=== PATIENT | male | born 1990 | race American Indian/Alaskan Native ===

== ENCOUNTER 2017-04-25 09:50 | Emergency (ER) | payer OTHER ==
[2017-04-25] MEDS ORDERED: Alum Hydrox/Mag Hydrox/Simeth 15 ML, Lidocaine 2% 15 ML PO ONE ×2 (10:08)
--- NOTE | 2017-04-25 10:18 | EDM.PDOC ---
ED HPI GENERAL MEDICAL PROBLEM - General Chief Complaint: Gastrointestinal Problem Stated Complaint: [facility] Time Seen by Provider: 04/25/17 10:05 Source of Information: Reports: Patient, Other (staff at [facility]) History Limitations: Reports: Other (incomplete old records) - History of Present Illness INITIAL COMMENTS - FREE TEXT/NARRATIVE: 26 yo male admitted to [facility] last night from the [facility] due to a BA of .37. Says he drinks most days until he passes out. Has been drinking for now 7 days straight. This morning vomited blood and stools were reportedly black per patient. He denies a hx of PUD. Currently has both RUQ and epigastric tenderness. EMS transported and started an IV and administered an anti-emetic with relief of his nausea. Onset: Today Onset Date: 04/25/17 Onset Time: 07:00 Duration: Hour(s):, Constant Location: Reports: Abdomen Quality: Reports: Ache Severity: Moderate Improves with: Reports: None Worsens with: Reports: None Context: Reports: Other (Heavy alcohol use.) Associated Symptoms: Reports: Nausea/Vomiting, Other (black stools) Treatments [employer]: Reports: Other (see below) (IV fluids, anti-emetics) Right Upper Abdomen Pain Score (Numeric/FACES): 6 - Related Data Allergies Allergy/AdvReac Type Severity Reaction Status Date / Time cefaclor [From Ceclor] Allergy Hives Verified 04/25/17 10:22 Penicillins Allergy Hives Verified 04/25/17 10:22 Home Meds: Home Meds Omeprazole 40 mg PO DAILY #30 cap.sr 04/25/17 [Rx] Sertraline [Zoloft] 50 mg PO DAILY 04/25/17 [History] busPIRone [Buspar] 15 mg PO BID 04/25/17 [History] ED ROS GENERAL - Review of Systems Review Of Systems: See Below Constitutional: Reports: No Symptoms HEENT: Reports: No Symptoms Respiratory: Reports: No Symptoms Cardiovascular: Reports: No Symptoms Endocrine: Reports: No Symptoms GI/Abdominal: Reports: Abdominal Pain, Black Stool, Hematemesis, Melena, Nausea , Vomiting. Denies: Bloody Stool, Constipation, Diarrhea, Flatus, Hematochezia : Reports: No Symptoms Musculoskeletal: Reports: No Symptoms Skin: Reports: No Symptoms Neurological: Reports: No Symptoms Psychiatric: Reports: No Symptoms ED EXAM, GI/ABD - Physical Exam Exam: See Below Exam Limited By: No Limitations General Appearance: Alert, WD/WN, No Apparent Distress Eyes: Bilateral: Normal Appearance Ears: Normal External Exam, Normal Canal, Hearing Grossly Normal, Normal TMs Nose: Normal Inspection, Normal Mucosa, No Blood Throat/Mouth: Normal Inspection, Normal Lips, Normal Oropharynx, Normal Voice, No Airway Compromise Head: Atraumatic, Normocephalic Neck: Normal Inspection, Supple, Non-Tender Respiratory/Chest: No Respiratory Distress, Lungs Clear, Normal Breath Sounds, No Accessory Muscle Use Cardiovascular: Regular Rate, Rhythm, No Edema GI/Abdominal Exam: Normal Bowel Sounds, Soft, No Distention, Tender (RUQ and epigastrium). No: Distended, Guarding, Rigid, Rebound Back Exam: Normal Inspection. No: CVA Tenderness (R), CVA Tenderness (L) Extremities: Normal Inspection, Normal Range of Motion, Non-Tender, No Pedal Edema Neurological: Alert, Oriented, CN II-XII Intact, Normal Cognition, No Motor/ Sensory Deficits Psychiatric: Normal Affect, Normal Mood Skin Exam: Warm, Dry, Intact, Normal Color, No Rash Lymphatic: No Adenopathy Course - Vital Signs Last Recorded V/S: Last Vital Signs Temp 37.1 C 04/25/17 10:06 Pulse 85 04/25/17 10:06 Resp 16 04/25/17 10:06 BP 121/71 04/25/17 10:06 Pulse Ox 97 04/25/17 10:06 Orthostatic Blood Pressure [ 121/94 Standing] Orthostatic Blood Pressure [ 150/74 Sitting] Orthostatic Blood Pressure [ 131/81 Supine] - Orders/Labs/Meds Orders: Active Orders 24 hr Category Date Time Status Hemoccult [Fecal Occult Blood Collection] [RC] Care 04/25/17 10:12 Active ASDIRECTED Orthostatic Vital Signs [RC] ASDIRECTED Care 04/25/17 10:08 Active Pantoprazole [ProTONIX] Med 04/25/17 10:45 Active 40 mg PO DAILY Medication Orders Pantoprazole Sodium (Protonix) 40 mg PO DAILY [facility] Last Admin: 04/25/17 10:51 Dose: 40 mg Meds: Medications Generic Name Dose Route Start Last Admin Trade Name Freq PRN Reason Stop Dose Admin Pantoprazole Sodium 40 mg 04/25/17 10:45 04/25/17 10:51 Protonix PO 40 mg DAILY CIARA Administration Discontinued Medications Generic Name Dose Route Start Last Admin Trade Name Aranza PRN Reason Stop Dose Admin Al Hydroxide/Mg Hydroxide 15 0 ml 04/25/17 10:08 04/25/17 10:19 ml/ Lidocaine HCl 15 ml PO 04/25/17 10:09 30 ml ONETIME ONE Administration Departure - Departure Time of Disposition: 11:45 Disposition: Home, Self-Care 01 Condition: Fair Clinical Impression: Alcohol abuse, Tobacco use disorder Alcoholic gastritis Qualifiers: Chronicity: acute Gastritis bleeding: with bleeding Qualified Code(s): K29.21 - Alcoholic gastritis with bleeding Alcoholic hepatitis Qualifiers: Ascites presence: without ascites Qualified Code(s): K70.10 - Alcoholic hepatitis without ascites - Discharge Information Prescriptions: Omeprazole 40 mg PO DAILY #30 cap.sr Referrals: PCP,None [Primary Care Provider] - Forms: ED Department Discharge Additional Instructions: No smoking. No alcohol. Take omeprazole as directed until gone. See your doctor for recheck before the month is up. Recheck if worse. - My Orders Last 24 Hours: My Active Orders 04/25/17 10:08 Orthostatic Vital Signs [RC] ASDIRECTED 04/25/17 10:12 Hemoccult [Fecal Occult Blood Collection] [RC] ASDIRECTED 04/25/17 10:45 Pantoprazole [ProTONIX] 40 mg PO DAILY - Assessment/Plan Last 24 Hours: My Active Orders 04/25/17 10:08 Orthostatic Vital Signs [RC] ASDIRECTED 04/25/17 10:12 Hemoccult [Fecal Occult Blood Collection] [RC] ASDIRECTED 04/25/17 10:45 Pantoprazole [ProTONIX] 40 mg PO DAILY
[2017-04-25] MEDS ORDERED: Pantoprazole 40 MG Tab.CR PO SCH (10:45)
== END 2017-04-25 12:55 | disposition home or self-care (01) ==
LOC: JP.ED 09:50
DX: K29.21 Alcoholic gastritis with bleeding (principal); K70.10 Alcoholic hepatitis without ascites; F10.10 Alcohol abuse, uncomplicated; Z72.0 Tobacco use; Z88.0 Allergy status to penicillin; Z88.1 Allergy status to other antibiotic agents; Z79.899 Other long term (current) drug therapy
CPT/HCPCS: 82272; 99284; A9270

== ENCOUNTER 2017-06-08 09:22 | Emergency (ER) | payer OTHER ==
[2017-06-08] MEDS ORDERED: Clindamycin HCl 150 MG Cap PO ONE (09:53)
--- NOTE | 2017-06-08 09:59 | EDM.PDOC ---
ED HPI GENERAL MEDICAL PROBLEM - General Chief Complaint: ENT Problem Stated Complaint: TOOTH PAIN RIGHT SIDE,ALCOHOL WITHDRAWAL Time Seen by Provider: 06/08/17 09:40 Source of Information: Reports: Patient History Limitations: Reports: No Limitations - History of Present Illness INITIAL COMMENTS - FREE TEXT/NARRATIVE: 26-year-old male with right-sided mandibular dental pain, who has been drinking a lot of alcohol over the past 3 days. He has been to detox many times and tends to sign himself out. Last time he was there was a few weeks ago when they sent him in because he said he was throwing up blood and having dark stools but his workup was negative including Hemoccult. He said he doesn't have his antibiotics because he's been in [place] for 3 days, however he was in the emergency room up in [place] yesterday so his story keeps changing. He is refusing to go back to detox, wants something for his dental pain. He also wants something to "calm him down". He is afebrile, his blood pressure and pulse were normal. Associated Symptoms: Denies: Fever/Chills, Nausea/Vomiting, Shortness of Breath Right Tooth/Teeth Pain Score (Numeric/FACES): 10 - Related Data Allergies Allergy/AdvReac Type Severity Reaction Status Date / Time cefaclor [From Ceclor] Allergy Hives Verified 04/25/17 10:22 Penicillins Allergy Hives Verified 04/25/17 10:22 Home Meds: Home Meds Omeprazole 40 mg PO DAILY #30 cap.sr 04/25/17 [Rx] Sertraline [Zoloft] 50 mg PO DAILY 04/25/17 [History] busPIRone [Buspar] 15 mg PO BID 04/25/17 [History] Past Medical History Respiratory History: Reports: Asthma Musculoskeletal History: Reports: Fracture Neurological History: Reports: Concussion Psychiatric History: Reports: Addiction, Anxiety, Depression Dermatologic History: Reports: Eczema - Infectious Disease History Infectious Disease History: Reports: MRSA - Past Surgical History HEENT Surgical History: Reports: Tonsillectomy Social & Family History - Tobacco Use Smoking Status *Q: Current Every Day Smoker Years of Tobacco use: 10 Packs/Tins Daily: 0.5 - Caffeine Use Caffeine Use: Reports: Coffee, Energy Drinks, Soda, Tea - Alcohol Use Days Per Week of Alcohol Use: 3 Number of Drinks Per Day: 6 Total Drinks Per Week: 18 - Recreational Drug Use Recreational Drug Use: Yes Drug Use in Last 12 Months: Yes Recreational Drug Type: Reports: Marijuana/Hashish Recreational Drug Use Frequency: Weekly ED ROS ENT - Review of Systems Review Of Systems: See Below Constitutional: Denies: Fever HEENT: Reports: Dental Pain Respiratory: Denies: Shortness of Breath Cardiovascular: Denies: Chest Pain GI/Abdominal: Denies: Abdominal Pain, Nausea, Vomiting : Reports: No Symptoms Psychiatric: Reports: Anxiety ED EXAM, ENT - Physical Exam Exam: See Below Exam Limited By: No Limitations General Appearance: Alert, Anxious Eye Exam: Right Eye: Other (Some mild bilateral sclerae erythema, no jaundice) Mouth/Throat: Other (He does have percussion tenderness to the second molar of the right mandible, a very small amount of redness around the base of the tooth. No jaw swelling.) Respiratory/Chest: No Respiratory Distress Neurological: Alert, Oriented Psychiatric: Anxious Course - Vital Signs Last Recorded V/S: Last Vital Signs Temp 97.1 F 06/08/17 09:36 Pulse 90 06/08/17 09:36 Resp 18 06/08/17 09:36 BP 130/88 06/08/17 09:36 Pulse Ox 99 06/08/17 09:36 - Orders/Labs/Meds Meds: Medications Discontinued Medications Generic Name Dose Route Start Last Admin Trade Name Aranza PRN Reason Stop Dose Admin Clindamycin HCl 300 mg 06/08/17 09:53 06/08/17 09:59 Cleocin PO 06/08/17 09:54 300 mg ONETIME ONE Administration - Re-Assessments/Exams Free Text/Narrative Re-Assessment/Exam: 06/08/17 09:58 Told the patient I can't treat his withdrawal on an outpatient. He already has antibiotics for his dental infection but isn't bothering to take them. He was given 300 mg of oral clindamycin and encouraged to continue his regular antibiotics and call the dentist office today for an appointment in the next few days. I strongly encouraged him to consider detox but he refused. Departure - Departure Time of Disposition: 10:13 Disposition: Home, Self-Care 01 Condition: Fair Clinical Impression: Alcohol abuse, Dental abscess - Discharge Information Instructions: Alcohol Use Disorder Referrals: PCP,None [Primary Care Provider] - Forms: ED Department Discharge Care Plan Goals: You need to get your medications and take them as directed, call the dentist to get an appointment as soon as possible. Consider detox if unable to control your drinking over the next several days.
== END 2017-06-08 10:10 | disposition home or self-care (01) ==
LOC: JP.ED 09:22
DX: F10.239 Alcohol dependence with withdrawal, unspecified (principal); K04.7 Periapical abscess without sinus; J45.909 Unspecified asthma, uncomplicated; F17.210 Nicotine dependence, cigarettes, uncomplicated; F41.9 Anxiety disorder, unspecified; F32.9 Major depressive disorder, single episode, unspecified; Z88.0 Allergy status to penicillin; Z88.8 Allergy status to other drugs, medicaments and biological substances; Z79.899 Other long term (current) drug therapy; Z86.14 Personal history of Methicillin resistant Staphylococcus aureus infection
CPT/HCPCS: 99283; A9270

== ENCOUNTER 2017-08-19 21:42 | Emergency (ER) | payer MEDICAID, OTHER ==
--- NOTE | 2017-08-19 22:39 | EDM.PDOC ---
ED HPI GENERAL MEDICAL PROBLEM - General Chief Complaint: Abdominal Pain Stated Complaint: BLOOD IN STOOL Time Seen by Provider: 08/19/17 22:05 Source of Information: Reports: Patient History Limitations: Reports: No Limitations - History of Present Illness INITIAL COMMENTS - FREE TEXT/NARRATIVE: 26-year-old male, day 3 of detox at [employer] [facility] and was scheduled to be discharged today but is going home tomorrow because he didn't have a ride. Tonight he developed some rectal bleeding 2. He has been seen for rectal bleeding and hematemesis in the past which tests turned out to be negative, he also had a workup in [place] recently where he was diagnosed with GERD. Intermittent mild abdominal discomfort and heartburn. No fevers or chills, denies hematemesis. Severity: Mild Associated Symptoms: Denies: Fever/Chills, Headaches, Loss of Appetite, Nausea/ Vomiting Abdomen Pain Score (Numeric/FACES): 6 - Related Data Allergies Allergy/AdvReac Type Severity Reaction Status Date / Time cefaclor [From Ceclor] Allergy Hives Verified 08/19/17 22:05 Penicillins Allergy Hives Verified 08/19/17 22:05 sulfamethoxazole Allergy Rash Verified 08/19/17 22:05 [From Bactrim] trimethoprim [From Bactrim] Allergy Rash Verified 08/19/17 22:05 Home Meds: Home Meds Omeprazole 40 mg PO DAILY #30 cap.sr 04/25/17 [Rx] Sertraline [Zoloft] 50 mg PO DAILY 04/25/17 [History] busPIRone [Buspar] 15 mg PO BID 04/25/17 [History] Past Medical History Respiratory History: Reports: Asthma Gastrointestinal History: Reports: GERD Musculoskeletal History: Reports: Fracture Neurological History: Reports: Concussion Psychiatric History: Reports: Addiction, Anxiety, Depression Dermatologic History: Reports: Eczema - Infectious Disease History Infectious Disease History: Reports: MRSA - Past Surgical History HEENT Surgical History: Reports: Tonsillectomy Social & Family History - Tobacco Use Smoking Status *Q: Light Tobacco Smoker Years of Tobacco use: 10 Packs/Tins Daily: 0.5 - Caffeine Use Caffeine Use: Reports: Coffee, Energy Drinks, Soda, Tea - Alcohol Use Days Per Week of Alcohol Use: 7 Number of Drinks Per Day: 10 Total Drinks Per Week: 70 Date of Last Drink: 08/16/17 Time of Last Drink: 01:00 - Recreational Drug Use Recreational Drug Use: No ED ROS GENERAL - Review of Systems Review Of Systems: See Below Constitutional: Denies: Fever, Chills HEENT: Reports: No Symptoms Respiratory: Denies: Shortness of Breath Cardiovascular: Denies: Chest Pain GI/Abdominal: Reports: Abdominal Pain, Hematochezia, Nausea. Denies: Vomiting : Reports: No Symptoms Skin: Reports: Other (Abrasions on his limbs from recent falls) Neurological: Denies: Headache ED EXAM, GI/ABD - Physical Exam Exam: See Below Exam Limited By: No Limitations General Appearance: Alert, No Apparent Distress Eyes: Bilateral: Normal Appearance Respiratory/Chest: No Respiratory Distress, Lungs Clear GI/Abdominal Exam: Normal Bowel Sounds, Soft, Tender (Reacts with a small amount of diffuse tenderness, no focal tenderness or guarding) Neurological: Alert, Oriented Psychiatric: Normal Affect, Normal Mood Skin Exam: Warm, Dry Course - Vital Signs Last Recorded V/S: Last Vital Signs Temp 98.4 F 08/19/17 22:02 Pulse 103 H 08/19/17 22:02 Resp 16 08/19/17 22:02 BP 138/85 08/19/17 22:02 Pulse Ox 98 08/19/17 22:02 - Orders/Labs/Meds Labs: Laboratory Tests 08/19/17 Range/Units 22:25 WBC 8.5 (4.5-11.0) K/uL RBC 4.68 (4.30-5.90) M/uL Hgb 15.2 H (12.0-15.0) g/dL Hct 43.3 (40.0-54.0) % MCV 93 (80-98) fL MCH 33 H (27-31) pg MCHC 35 (32-36) % Plt Count 253 (150-400) K/uL Neut % (Auto) 69 H (36-66) % Lymph % (Auto) 20 L (24-44) % Sutton % (Auto) 10 H (2-6) % Eos % (Auto) 1 L (2-4) % Baso % (Auto) 0 (0-1) % Meds: Medications Discontinued Medications Generic Name Dose Route Start Last Admin Trade Name Freq PRN Reason Stop Dose Admin Al Hydroxide/Mg Hydroxide 30 ml 08/19/17 22:31 08/19/17 22:44 Mag-Al Plus PO 08/19/17 22:32 30 ml ONETIME ONE Administration - Re-Assessments/Exams Free Text/Narrative Re-Assessment/Exam: 08/19/17 22:34 Hemoglobin baseline will be drawn, patient asked for something for his stomach so was given 30 mL of liquid Maalox. 08/19/17 23:07 Hemoglobin is 15.2. Patient had no further hematochezia while in the emergency room. He will recheck in 48-72 hours if symptoms persist, or recheck sooner if worsening. Departure - Departure Time of Disposition: 23:27 Disposition: Home, Self-Care 01 Condition: Good Clinical Impression: Rectal bleeding - Discharge Information Instructions: Rectal Bleeding Referrals: PCP,None [Primary Care Provider] - Forms: ED Department Discharge Care Plan Goals: Stool softeners may help. Drink lots of water. Recheck in 2-3 days if not improving. Return sooner if worsening or concerns.
[2017-08-19] MEDS: Aluminum Hydroxide/Magnesium Hydroxide/Simethicone Susp 30 ML Cup PO ONE (22:44)
== END 2017-08-19 23:27 | disposition home or self-care (01) ==
LOC: JP.ED 21:42
DX: K62.5 Hemorrhage of anus and rectum (principal); K21.9 Gastro-esophageal reflux disease without esophagitis; F41.9 Anxiety disorder, unspecified; F32.9 Major depressive disorder, single episode, unspecified; J45.909 Unspecified asthma, uncomplicated; F17.210 Nicotine dependence, cigarettes, uncomplicated; Z79.899 Other long term (current) drug therapy; Z88.0 Allergy status to penicillin; Z88.1 Allergy status to other antibiotic agents
CPT/HCPCS: 36415; 85025; 99284; A9270

== ENCOUNTER 2021-02-03 19:19 | Emergency (ER) | payer MEDICAID ==
--- NOTE | 2021-02-03 20:17 | EDM.PDOC ---
ED HPI GENERAL MEDICAL PROBLEM - General Chief Complaint: ENT Problem Stated Complaint: ABCESS TOOTH Time Seen by Provider: 02/03/21 19:55 Source of Information: Reports: Patient, Family History Limitations: Reports: No Limitations - History of Present Illness INITIAL COMMENTS - FREE TEXT/NARRATIVE: 30-year-old male who has been on a detox for the last 48 hours, has developed s welling and pain in the left mandible and decided to leave detox to treat his tooth ache. No fevers or chills but he does have some minimal early swelling on the left mandible and some tenderness over the area. Onset: Gradual Duration: Day(s): (Symptoms for 2 days, this tooth has been a problem off and on for a year) Location: Reports: Other (Left mandible) Associated Symptoms: Reports: Other (Mild facial swelling) Left Jaw Pain Score (Numeric/FACES): 10 - Related Data Allergies Allergy/AdvReac Type Severity Reaction Status Date / Time cefaclor [From Ceclor] Allergy Hives Verified 02/03/21 19:53 Penicillins Allergy Hives Verified 02/03/21 19:53 sulfamethoxazole Allergy Rash Verified 02/03/21 19:53 [From Bactrim] trimethoprim [From Bactrim] Allergy Rash Verified 02/03/21 19:53 Home Meds: Home Meds NK [No Known Home Meds] 02/03/21 [History] Past Medical History HEENT History: Reports: Impaired Vision Respiratory History: Reports: Asthma Gastrointestinal History: Reports: GERD Musculoskeletal History: Reports: Fracture Neurological History: Reports: Concussion Psychiatric History: Reports: Addiction, Anxiety, Depression Dermatologic History: Reports: Eczema - Infectious Disease History Infectious Disease History: Reports: MRSA - Past Surgical History HEENT Surgical History: Reports: Tonsillectomy Social & Family History - Tobacco Use Tobacco Use Status *Q: Current Every Day Tobacco User Years of Tobacco use: 10 Packs/Tins Daily: 0.5 - Caffeine Use Caffeine Use: Reports: Coffee, Soda, Tea - Alcohol Use Date of Last Drink: 02/01/21 - Recreational Drug Use Recreational Drug Use: Yes Recreational Drug Type: Reports: Marijuana/Hashish Other Recreational Drug Type: as teenager ED ROS ENT - Review of Systems Review Of Systems: See Below Constitutional: Reports: Malaise (Feeling uncomfortable as he is still experiencing some detox). Denies: Fever, Chills HEENT: Reports: Dental Pain (Left mandible) Respiratory: Denies: Shortness of Breath, Cough Cardiovascular: Reports: Palpitations GI/Abdominal: Reports: No Symptoms Psychiatric: Reports: Anxiety ED EXAM, ENT - Physical Exam Exam: See Below Exam Limited By: No Limitations General Appearance: Alert, No Apparent Distress (Is 97) Eye Exam: Bilateral Eye: Normal Inspection Mouth/Throat: Other (Widespread advanced dental decay, he does have some mild swelling and gingival erythema around the left mandibular molars. Tender to palpation over the area.) Neck: No: Lymphadenopathy (R), Lymphadenopathy (L) Respiratory/Chest: No Respiratory Distress, Lungs Clear Cardiovascular: Regular Rate, Rhythm, Tachycardia Course - Vital Signs Last Recorded V/S: Last Vital Signs Temp 98.8 F 02/03/21 19:51 Pulse 112 H 02/03/21 19:51 Resp 16 02/03/21 19:51 BP 160/112 H 02/03/21 19:51 Pulse Ox 95 02/03/21 19:51 - Re-Assessments/Exams Free Text/Narrative Re-Assessment/Exam: 02/03/21 20:16 Patient was placed on clindamycin 300 mg 3 times a day for 10 days. Encouraged to use ibuprofen or naproxen on a regular basis for pain, also given some Benadryl to use for anxiety over the next couple of days. I strongly encouraged she consider going back to detox to finish his treatment but he is not going to do that. Departure - Departure Time of Disposition: 20:22 Disposition: Home, Self-Care 01 Clinical Impression: Dental abscess - Discharge Information Instructions: Dental Abscess, [id number] Referrals: PCP,None [Primary Care Provider] - Forms: ED Department Discharge Care Plan Goals: Take clindamycin as directed for the next 10 days, ibuprofen or naproxen would be helpful with pain. Return if worsening such as increased swelling, fever or pain despite the antibiotic. Call your dentist tomorrow to see if you can get in for an exam. Sepsis Event Note (ED) - Evaluation Sepsis Screening Result: No Definite Risk - Focused Exam Vital Signs: Vital Signs Temp Pulse Resp BP Pulse Ox 02/03/21 19:51 98.8 F 112 H 16 160/112 H 95
== END 2021-02-03 20:23 | disposition home or self-care (01) ==
LOC: JP.ED 19:19
DX: K04.7 Periapical abscess without sinus (principal); Z88.0 Allergy status to penicillin; Z88.1 Allergy status to other antibiotic agents; Z72.0 Tobacco use
CPT/HCPCS: 99282

== ENCOUNTER 2023-06-27 09:07 | Emergency (ER) | payer MEDICAID | END 2023-06-27 09:38 | disposition left against medical advice (07) | LOC: JP.ED 09:07 | DX: Z53.21 Procedure and treatment not carried out due to patient leaving prior to being seen by health care provider (principal) ==

== ENCOUNTER 2023-06-28 20:17 | Emergency (ER) | payer MEDICAID | END 2023-06-28 21:00 | disposition left against medical advice (07) | LOC: JP.ED 20:17 | DX: F10.120 Alcohol abuse with intoxication, uncomplicated (principal); Y90.8 Blood alcohol level of 240 mg/100 ml or more | CPT/HCPCS: 36415; 80307; 99284 ==

== ENCOUNTER 2023-08-25 13:08 | Emergency (ER) | payer MEDICAID ==
[2023-08-25 13:34] LABS: BASOPHILS ABSOLUTE AUTO 0.03 K/uL (0.00-0.10); BASOPHILS PERCENT AUTO 0.3 % (0.1-1.3); EOSINOPHILS PERCENT AUTO 0.1 % (0.0-5.4); HEMATOCRIT 40.1 % (38.4-49.7); HEMOGLOBIN 14.8 g/dL (12.9-16.9); IMMATURE GRAN ABSOLUTE AUTO 0.03 K/uL (0.00-0.23); IMMATURE GRAN PERCENT AUTO 0.3 % (0.0-0.7); LYMPHOCYTES ABSOLUTE AUTO 2.53 K/uL (0.8-3.3); LYMPHOCYTES PERCENT AUTO 27.4 % (11.4-47.7); MEAN CORPUSCULAR HGB CONC 36.9 g/dL (31.6-35.5); MEAN CORPUSCULAR VOLUME 89.3 fL (81.4-99.0); MONOCYTES ABSOLUTE AUTO 0.77 K/uL (0.20-0.90); MONOCYTES PERCENT AUTO 8.3 % (3.3-12.6); NEUTROPHILS ABSOLUTE AUTO 5.86 K/uL (1.0-7.6); NEUTROPHILS PERCENT AUTO 63.6 % (40.0-78.1); PLATELET COUNT,PLT 254 K/uL (130-375); RED BLOOD CELL COUNT 4.49 M/uL (4.14-5.76); WHITE BLOOD CELL COUNT,WBC 9.2 K/uL (3.2-11.0)
[2023-08-25 13:39] LABS: EOSINOPHILS ABSOLUTE AUTO 0.01 K/uL (0.00-0.40)
[2023-08-25] MEDS: Sodium Chloride 0.9% 1,000 ML IV SCH (13:45)
[2023-08-25] MEDS: hydrOXYzine HCl 25 MG Tab PO ONE (13:45)
[2023-08-25 13:47] LABS: A/G RATIO 0.9 (1.2-2.2); ALANINE AMINOTRANSFERASE,ALT 31 U/L (12-78); ALBUMIN 3.8 g/dL (3.4-5.0); ALKALINE PHOSPHATASE 102 U/L (46-116); ANION GAP 10.6 mmol/L (5.0-14.0); ASPARTATE AMNIOTRANSFERASE,AST 28 U/L (15-37); BILIRUBIN TOTAL 0.2 mg/dL (0.2-1.0); BLOOD UREA NITROGEN,BUN 5 mg/dL (7-18); CALCIUM 8.9 mg/dL (8.5-10.1); CARBON DIOXIDE,CO2 27 mmol/L (21-32); CHLORIDE,CL 104 mmol/L (100-108); CREATININE 0.7 mg/dL (0.8-1.3); EST CRCL DRUG DOSING (CG) 174.38 mL/min; ESTIMATED GFR 127 mL/min (>60); GLUCOSE RANDOM 111 mg/dL (74-106); POTASSIUM,K 3.9 mmol/L (3.6-5.2); SODIUM,NA 142 mmol/L (140-148)
[2023-08-25 14:02] LABS: AMPHETAMINES SCREEN, URINE NEGATIVE (NEGATIVE); BARBITURATE SCREEN,URINE PRESUMPTIVE POSITIVE (NEGATIVE); BENZODIAZEPINES SCREEN,URINE PRESUMPTIVE POSITIVE (NEGATIVE); METHADONE SCREEN, URINE NEGATIVE (NEGATIVE); METHAMPHETAMINES SCREEN, URINE NEGATIVE (NEGATIVE); OXYCODONE SCREEN,URINE NEGATIVE (NEGATIVE); PROPOXYPHENE SCREEN,URINE NEGATIVE (NEGATIVE); THC SCREEN,URINE 50 NG/ML NEGATIVE (NEGATIVE)
== END 2023-08-25 15:06 | disposition home or self-care (01) ==
LOC: JP.ED 13:08
DX: F10.239 Alcohol dependence with withdrawal, unspecified (principal); J45.909 Unspecified asthma, uncomplicated; K21.9 Gastro-esophageal reflux disease without esophagitis; Z79.899 Other long term (current) drug therapy; Z88.0 Allergy status to penicillin; Z88.2 Allergy status to sulfonamides; Z88.8 Allergy status to other drugs, medicaments and biological substances; Y90.8 Blood alcohol level of 240 mg/100 ml or more
CPT/HCPCS: 36415; 80053; 80305; 80307; 85025; 96360; 99284; A9270; J7030